=== PATIENT | female | born 1955 | race African-American/Black ===

== ENCOUNTER → 2016-11-01 | Outpatient (CLI) | payer OTHER ==
[~2016-11-01] MED LIST: ACCUPRIL40 MG PO; AMLODIPINE BESY10 MG PO; ASPIRIN325 MG PO; Ecotrin PO; HYDROCHLOROTHIA25 MG PO; HYDROXYZINE PAM50 MG PO; Hydrodiuril,Oretic,E PO; PAROXETINE HCL20 MG PO; PAROXETINE HCL40 MG PO; SIMVASTATIN80 MG PO; TRAMADOL HCL50 MG PO
== END | disposition home or self-care (01) ==
LOC: RAD 10:27
DX: Z02.71 Encounter for disability determination (principal); M22.91 Unspecified disorder of patella, right knee
CPT/HCPCS: 73130; 73560

== ENCOUNTER 2017-04-14 03:01 | Observation (INO) | payer OTHER ==
[~2017-04-14] VITALS: Ht 165.1 cm; Wt 79.0 kg
[2017-04-14 04:25] LABS: HEMATOCRIT 34.8 % (36.0-46.0); MCH 30.1 PG (29.0-34.0); MCHC 34.8 G/DL (30.0-36.0); MCV 86.6 FL (83-99); MEAN PLAT.VOLUME 10.9 uM^3 (9.5-12.4); PLATELET COUNT 205 K/uL (156-360); RBC DIS.WIDTH-CV 13.4 % (11.8-14.6); RBC DIS.WIDTH-SD 42.7 % (39-53); RED BLOOD COUNT 4.02 M/uL (3.80-5.20); WHITE BLOOD COUNT 10.3 K/uL (4.1-10.2)
[2017-04-14 04:41] LABS: CHLORIDE 99 mEq/L (99-109); POTASSIUM 2.8 mEq/L (3.7-5.4); SODIUM 135 mEq/L (136-147)
[2017-04-14 04:42] LABS: GLUCOSE 97 mg/dL (70-99)
[2017-04-14 04:44] LABS: ANION GAP 14 MEQ/L (2-14)
[2017-04-14 04:46] LABS: GFR ESTIMATE (CALCULATED) > 59 mL/min/; TROP-I INTERPRETATION NEGATIVE; TROPONIN-I 0.01 ng/mL (0.0-0.30)
[2017-04-14 04:47] LABS: UREA NITROGEN (BUN) 8 mg/dL (9-23)
[2017-04-14] MEDS ORDERED: PRAZOSIN HCL1 MG PO (06:11)
[2017-04-14] MEDS ORDERED: ASPIRIN81 M2 PO (06:11)
[2017-04-14] MEDS ORDERED: ATORVASTATIN CA20 MG PO (06:11)
[2017-04-14] MEDS ORDERED: TRAZODONE HCL50 MG PO (06:12)
[2017-04-14] MEDS ORDERED: LAMICTAL25 MG PO (06:13)
[2017-04-14] MEDS ORDERED: HYDROXYZINE PAM25 MG PO (06:14)
[2017-04-14 06:16] LABS: MAGNESIUM 1.9 mg/dL (1.3-2.7)
[2017-04-14] MEDS ORDERED: IBUPROFEN800 MG PO (06:17)
[2017-04-14] MEDS ORDERED: LORATADINE10 M2 PO ×2 (06:17→09:45)
[2017-04-14] MEDS ORDERED: QUINAPRIL HCL40 MG PO (06:17)
[2017-04-14] MEDS ORDERED: HYDROCHLOROTHIA25 MG PO ×2 (06:18→09:45)
[2017-04-14 06:20] LABS: SERUM ETHYL ALCOHOL 16 mg/dL
[2017-04-14 08:45] VITALS: BP 114/55
[2017-04-14] MEDS ORDERED: OXCARBAZEPINE150 MG PO (09:45)
[2017-04-14] MEDS ORDERED: LIPITOR20 MG PO (09:48)
[2017-04-14 11:53] VITALS: BP 151/87
[2017-04-14 14:51] LABS: ADD MIUA? YES; BILIRUBIN NEGATIVE; BLOOD NEGATIVE; COLOR YELLOW ((YELLOW)); GLUCOSE (STRIP) NEGATIVE; KETONES NEGATIVE; LEUKOCYTES NEGATIVE; NITRITE NEGATIVE; PROTEIN (STRIP) NEGATIVE; SPECIFIC GRAVITY 1.008 (1.000-1.030); UROBILINOGEN 0.2 MG/DL (0.2-1.0)
[2017-04-14 14:58] LABS: AMPHETAMINES QUANT VALUE 0 NG/ML; BARBITUATES QUANT VALUE 0 NG/ML; BENZODIAZEPINES QUANT VALUE 0 NG/ML; BENZODIAZEPINES, URINE SCREEN Negative (200 ng/mL); MARIJUANA QUANT VALUE 0 NG/ML; PHENCYCLIDINE QUANT VALUE 0 NG/ML
[2017-04-14 14:59] LABS: BACTERIA RARE /HPF; EPITHELIAL CELLS RARE /HPF; MUCUS TRACE /LPF; RED BLOOD CELLS 0-5 /HPF (0-5); UCUL ADDED? NO; WHITE BLOOD CELLS 0-5 /HPF (0-5)
[2017-04-14 15:59] VITALS: BP 129/73
[2017-04-14 18:40] LABS: ANION GAP 10 MEQ/L (2-14); CHLORIDE 101 MEQ/L (99-109); GFR ESTIMATE (CALCULATED) > 59 mL/min/; SAMPLE HEMOLYSIS CHECK 0; SAMPLE ICTERIC CHECK 0; SAMPLE LIPEMIA CHECK 0; SODIUM 132 MEQ/L (136-147); UREA NITROGEN (BUN) 10 mg/dL (9-23)
[2017-04-14 18:45] LABS: GLUCOSE 163 mg/dL (70-99); POTASSIUM 3.7 MEQ/L (3.7-5.4)
[2017-04-14 20:00] VITALS: BP 103/55
[2017-04-15] VITALS: BP 103/55
[2017-04-15 04:00] VITALS: BP 126/66
[2017-04-15 08:00] VITALS: BP 141/70
[2017-04-15] MEDS ORDERED: THERAGRAN1 TABLET PO (11:08)
[2017-04-15] MEDS ORDERED: Thiamine,Vitamin B1 PO (11:08)
[2017-04-15 11:15] LABS: HEMATOCRIT 35.2 % (36.0-46.0); MCH 31.5 PG (29.0-34.0); MCHC 35.2 G/DL (30.0-36.0); MCV 89.3 FL (83-99); RBC DIS.WIDTH-CV 13.8 % (11.8-14.6); RBC DIS.WIDTH-SD 44.7 % (39-53); RED BLOOD COUNT 3.94 M/uL (3.80-5.20)
[2017-04-15 11:41] LABS: ANION GAP 8 MEQ/L (2-14); CHLORIDE 101 MEQ/L (99-109); GFR ESTIMATE (CALCULATED) > 59 mL/min/; GLUCOSE 76 mg/dL (70-99); MEAN PLAT.VOLUME 11.1 uM^3 (9.5-12.4); PLAT.SUFFICIENCY ADEQUATE; PLATELET COUNT 224 K/uL (156-360); POTASSIUM 3.4 MEQ/L (3.7-5.4); SAMPLE HEMOLYSIS CHECK 0; SAMPLE ICTERIC CHECK 0; SAMPLE LIPEMIA CHECK 0; SODIUM 136 MEQ/L (136-147); UREA NITROGEN (BUN) 8 mg/dL (9-23)
[2017-04-15 12:00] VITALS: BP 134/73
[2017-04-15] MEDS ORDERED: FOLIC ACID1 MG PO (12:31)
[2017-04-15] MEDS ORDERED: PREDNISONE20 MG PO (12:31)
[2017-04-15] MEDS ORDERED: AZITHROMYCIN500 M1 PO (12:31)
[2017-04-15] MEDS ORDERED: NICOTINE PATCH1 EAC2 TD (12:31)
[2017-04-15] MEDS ORDERED: ADVAIR 100/501 DISK IH (12:33)
[2017-04-15] MEDS ORDERED: PROAIR HFA8.5 GM IH (12:33)
== END 2017-04-15 14:29 | disposition home or self-care (01) ==
LOC: EME 03:01 → 5WEST 05:44 → EDOF 05:44 → ENRESERV 05:47 → 5WEST 07:23
PROVIDERS: Emergency Medicine; Physician Assistant; Physician Assistant Medical
DX: J44.1 Chronic obstructive pulmonary disease with (acute) exacerbation (principal); J20.9 Acute bronchitis, unspecified; J44.0 Chronic obstructive pulmonary disease with (acute) lower respiratory infection; F17.210 Nicotine dependence, cigarettes, uncomplicated; D72.828 Other elevated white blood cell count; E87.6 Hypokalemia; Z87.898 Personal history of other specified conditions; I10 Essential (primary) hypertension; E78.5 Hyperlipidemia, unspecified; M19.90 Unspecified osteoarthritis, unspecified site; B19.20 Unspecified viral hepatitis C without hepatic coma; Z79.52 Long term (current) use of systemic steroids; Z82.49 Family history of ischemic heart disease and other diseases of the circulatory system
CPT/HCPCS: 71020; 80048; 80048 91; 80306 90; 81003; 83735; 83880; 84484; 85027; 93005; 94640; 94640 76; 94799; 99202; 99281; 99285; G0378; G0480; J1650; J2930; J3480; J7512; Q0177

== ENCOUNTER 2018-03-25 01:27 | Emergency (ER) | payer OTHER ==
[~2018-03-25] VITALS: Ht 165.1 cm; Wt 58.2 kg
[~2018-03-25 01:27] MED LIST changes: +ADVAIR 100/501 DISK IH; +ASPIRIN81 M2 PO; +ATORVASTATIN CA20 MG PO; +AZITHROMYCIN500 M1 PO; +FOLIC ACID1 MG PO; +HYDROXYZINE PAM25 MG PO; +IBUPROFEN800 MG PO; +LAMICTAL25 MG PO; +LIPITOR20 MG PO; +LORATADINE10 M2 PO; +NICOTINE PATCH1 EAC2 TD; +OXCARBAZEPINE150 MG PO; +PRAZOSIN HCL1 MG PO; +PREDNISONE20 MG PO; +PROAIR HFA8.5 GM IH; +QUINAPRIL HCL40 MG PO; +THERAGRAN1 TABLET PO; +TRAZODONE HCL50 MG PO; +Thiamine,Vitamin B1 PO
[2018-03-25 02:37] LABS: AMYLASE 39 IU/L (1-118); CHLORIDE 102 mEq/L (99-109); POTASSIUM 3.5 mEq/L (3.7-5.4); SODIUM 134 mEq/L (136-147)
[2018-03-25 02:39] LABS: GLUCOSE 93 mg/dL (70-99)
[2018-03-25 02:42] LABS: SERUM ETHYL ALCOHOL < 10 mg/dL
[2018-03-25 02:43] LABS: CREATININE 0.9 mg/dL (0.6-1.3); GFR ESTIMATE (CALCULATED) > 59 mL/min/
[2018-03-25 02:44] LABS: UREA NITROGEN (BUN) 11 mg/dL (9-23)
[2018-03-25 02:46] LABS: LIPASE 20 U/L (1.0-51.0)
[2018-03-25 02:54] LABS: BASOPHIL (%) 0.3 % (0-1); EOSINOPHIL (%) 0.4 % (0-5); HEMATOCRIT 34.4 % (36.0-46.0); HEMOGLOBIN 11.7 G/DL (11.9-15.5); IMMATURE GRANULOCYTE (%) 0.9 % (0.0-0.7); LYMPHOCYTE (%) 14.4 % (15-42); LYMPHOCYTE COUNT 1.5 K/uL (1.0-2.8); MCV 85.1 FL (83-99); MONOCYTE (%) 7.7 % (3-12); MONOCYTE COUNT 0.8 K/uL (0-0.8); NEUTROPHIL (%) 76.3 % (45-76); NEUTROPHIL COUNT 7.9 K/uL (1.8-6.4); NRBC (%) 0.9 /100 WBC (0-0); PLATELET COUNT 189 K/uL (156-360); RBC DIS.WIDTH-CV 13.5 % (11.8-14.6); RBC DIS.WIDTH-SD 42.3 % (39-53); RED BLOOD COUNT 4.04 M/uL (3.80-5.20); WHITE BLOOD COUNT 10.3 K/uL (4.1-10.2)
[2018-03-25] MEDS ORDERED: LIDOCAINE700 MG TP (03:08)
[2018-03-25] MEDS ORDERED: FLEXERIL10 MG PO (03:08)
[2018-03-25 03:58] VITALS: BP 121/69
== END 2018-03-25 03:58 | disposition home or self-care (01) ==
LOC: EME → EDBD 01:27 → EME 01:27
PROVIDERS: Emergency Medicine
DX: S16.1XXA Strain of muscle, fascia and tendon at neck level, initial encounter (principal); M48.02 Spinal stenosis, cervical region; V49.40XA Driver injured in collision with unspecified motor vehicles in traffic accident, initial encounter; Y92.410 Unspecified street and highway as the place of occurrence of the external cause; I10 Essential (primary) hypertension; E78.5 Hyperlipidemia, unspecified; F32.9 Major depressive disorder, single episode, unspecified; F17.200 Nicotine dependence, unspecified, uncomplicated; Z86.73 Personal history of transient ischemic attack (TIA), and cerebral infarction without residual deficits; Z79.82 Long term (current) use of aspirin
CPT/HCPCS: 70450; 71250; 72125; 80048; 82150; 83690; 85025; 99281; 99285; G0480